=== PATIENT | male | born 1940 | race Caucasian/White ===

== ENCOUNTER 2020-12-07 09:39 | Emergency (ER) | payer MEDICARE ==
[~2020-12-07 09:39] MED LIST: MIRALAX 119 GR119 GM PO
[2020-12-07 12:11] LABS: HEMOGLOBIN 13.7 gm/dl (14.0-17.5); RED BLOOD COUNT 4.51 M/UL (4.20-5.50); WHITE BLOOD COUNT 4.9 K/UL (4.5-11.0)
[2020-12-07 12:35] LABS: BUN/CREATININE RATIO 18 (0-10)
[2020-12-07] MEDS ORDERED: ENDOCET 5-3251 EACH PO (16:47)
== END 2020-12-07 17:00 | disposition home or self-care (01) ==
LOC: ER1 09:39
PROVIDERS: Physician Assistant
DX: M51.16 Intervertebral disc disorders with radiculopathy, lumbar region (principal); M48.061 Spinal stenosis, lumbar region without neurogenic claudication; I10 Essential (primary) hypertension; E78.5 Hyperlipidemia, unspecified
CPT/HCPCS: 72131; 72148; 73502; 80053; 82550; 82553; 83605; 83874; 84484; 85025; 99284; Q9967